=== PATIENT | female | born 1985 | race Caucasian/White ===

== ENCOUNTER → 2017-04-17 | Outpatient (CLI) | payer BC ==
[2017-04-17 14:13] LABS: Influenza A Negative (NEGATIVE); Influenza B Negative (NEGATIVE)
== END | disposition home or self-care (01) ==
LOC: LAB 13:34
PROVIDERS: Hospitalist
DX: R50.9 Fever, unspecified (principal); R05 Cough
CPT/HCPCS: 87804

== ENCOUNTER → 2018-05-09 | Outpatient (CLI) | payer BC ==
[2018-05-09 14:46] LABS: BASOPHILS ABSOLUTE AUTO 0.06 K/mm3 (0.00-0.23); BASOPHILS PERCENT AUTO 1 % (0-2); EOSINOPHILS ABSOLUTE AUTO 0.12 K/mm3 (0.00-0.68); EOSINOPHILS PERCENT AUTO 2 % (0-6); Hematocrit 42.8 % (33.0-51.0); Hemoglobin 13.9 g/dL (11.5-16.0); IMMATURE GRAN ABSOLUTE AUTO 0.02 K/mm3 (0.00-0.10); IMMATURE GRAN PERCENT AUTO 0 % (0-1); LYMPHOCYTES ABSOLUTE AUTO 1.79 K/mm3 (0.84-5.20); LYMPHOCYTES PERCENT AUTO 31 % (21-46); MONOCYTES ABSOLUTE AUTO 0.47 K/mm3 (0.16-1.47); MONOCYTES PERCENT AUTO 8 % (4-13); Mean Corpuscular HGB 31.5 pg (26.0-34.0); Mean Corpuscular HGB Conc 32.5 g/dL (31.5-36.5); Mean Corpuscular Volume 97 fL (80-100); Mean Platelet Volume 10.8 fL (9.1-12.4); NEUTROPHILS ABSOLUTE AUTO 3.31 K/mm3 (1.96-9.15); NEUTROPHILS PERCENT AUTO 58 % (41-73); Platelet Count 227 K/mm3 (150-400); RDW Coefficient Variation 11.7 % (11.7-14.2); Red Blood Cell Count 4.41 M/mm3 (3.80-5.20); White Blood Cell Count 5.77 K/mm3 (4.00-11.30)
[2018-05-09 14:49] LABS: Percent Saturation 14.9 % (15.0-50.0)
== END | disposition home or self-care (01) ==
LOC: LAB 14:16 → LAB SHORT 14:16
PROVIDERS: Hospitalist
DX: R53.83 Other fatigue (principal)
CPT/HCPCS: 83540; 83550; 85025

== ENCOUNTER 2019-08-31 09:34 | Day surgery (SDC) | payer BC ==
[~2019-08-31] VITALS: Ht 167.6 cm; Wt 72.7 kg
[~2019-08-31 09:34] MED LIST: FERROUS SULFAT325 M3 PO; METF500 PO; VITAMIN C PO; [UNRECOGNIZED DRUG - OTHER] PO
== END 2019-08-31 11:25 | disposition home or self-care (01) ==
LOC: ORSCSDS 09:34
PROVIDERS: Internal Medicine Gastroenterology
PROC: 0DBP8ZX Excision of Rectum, Via Natural or Artificial Opening Endoscopic, Diagnostic (ICD-10-PCS; principal; 2019-08-31 11:00)
DX: D50.9 Iron deficiency anemia, unspecified (principal); K62.1 Rectal polyp; K64.8 Other hemorrhoids; Z87.891 Personal history of nicotine dependence; Z79.899 Other long term (current) drug therapy
CPT/HCPCS: J2704; J7120

== ENCOUNTER 2020-01-28 09:27 | Day surgery (SDC) | payer OTHER, BC ==
[2020-01-27 09:47] LABS: BASOPHILS ABSOLUTE AUTO 0.05 K/mm3 (0.00-0.23); BASOPHILS PERCENT AUTO 1 % (0-2); EOSINOPHILS ABSOLUTE AUTO 0.09 K/mm3 (0.00-0.68); EOSINOPHILS PERCENT AUTO 2 % (0-6); Hemoglobin 12.4 g/dL (11.5-16.0); IMMATURE GRAN ABSOLUTE AUTO 0.01 K/mm3 (0.00-0.10); IMMATURE GRAN PERCENT AUTO 0 % (0-1); LYMPHOCYTES ABSOLUTE AUTO 1.43 K/mm3 (0.84-5.20); LYMPHOCYTES PERCENT AUTO 25 % (21-46); MONOCYTES ABSOLUTE AUTO 0.37 K/mm3 (0.16-1.47); MONOCYTES PERCENT AUTO 7 % (4-13); Mean Corpuscular HGB 30.8 pg (26.0-34.0); Mean Corpuscular HGB Conc 31.8 g/dL (31.5-36.5); Mean Corpuscular Volume 97 fL (80-100); Mean Platelet Volume 9.9 fL (9.1-12.4); NEUTROPHILS ABSOLUTE AUTO 3.78 K/mm3 (1.96-9.15); NEUTROPHILS PERCENT AUTO 66 % (41-73); Platelet Count 293 K/mm3 (150-400); RDW Coefficient Variation 12.8 % (11.7-14.2); RDW Standard Deviation 45.7 fL (35.1-46.3); Red Blood Cell Count 4.03 M/mm3 (3.80-5.20); White Blood Cell Count 5.73 K/mm3 (4.00-11.30)
[~2020-01-28] VITALS: Ht 167.6 cm; Wt 65.8 kg
--- NOTE | 2020-01-28 10:33 | NUR ---
Ambulatory in Day Surgery History, Chart, Medications and Allergies reviewed before start of procedure. Lungs clear T/O to Auscultation. Pre-Op teaching done. Pt verbalizes understanding.
--- NOTE | 2020-01-28 17:19 | NUR ---
PATIENT ARRIVED POD 0 FROM PACU ON 01/28/2020. PT HAD A TOTAL ROBOTIC HYSTERECTOMY. SHE CAME BACK ALERT AND ORIENTED X4. VS WERE WNL AND ON RA. PATIENT REPORTED NO PAIN AT THE TIME SHE CAME BACK. FLUIDS ARE RUNNING. CALL LIGHT WITHIN REACH. PT IS EL PO INTAKE. JARVIS IS DRAINING WITH YELLOW URINE AND NO KINKS IN THE TUBING. PT CALLS APPROPRIATELY AND IS VERY NICE TO WORK WITH.
--- NOTE | 2020-01-28 17:22 | NUR ---
SHIFT SUMMARY: POD 0 TOTAL ROBOTIC HYSTERECTOMY PATIENT HAS HAD NO SIGNIFICANT CHANGES SINCE COMING BACK FROM PACU. I HAVE GIVEN HER PAIN MEDICATIONS IV AND PO WHEN PAINFUL. SHE IS TOLERATING PO INTAKE. JARVIS IS STILL DRAINING YELLOW URINE WITH NO KINKS IN TUBING. SHE CALLS APPROPRIATELY. SHE HAS BEEN SLEEPING ON AND OFF DURING SHIFT BUT IS EASILY AROUSABLE. VITALS ARE WNL AND SHE IS STILL ON RA. CALL LIGHT WITHIN REACH. THE PLAN IS FOR PAIN TO CONTINUED TO BE MANAGED.
[2020-01-29 04:32] LABS: BASOPHILS ABSOLUTE AUTO 0.03 K/mm3 (0.00-0.23); BASOPHILS PERCENT AUTO 0 % (0-2); EOSINOPHILS ABSOLUTE AUTO 0.07 K/mm3 (0.00-0.68); EOSINOPHILS PERCENT AUTO 1 % (0-6); Hematocrit 35.2 % (33.0-51.0); Hemoglobin 11.2 g/dL (11.5-16.0); IMMATURE GRAN ABSOLUTE AUTO 0.04 K/mm3 (0.00-0.10); IMMATURE GRAN PERCENT AUTO 1 % (0-1); LYMPHOCYTES ABSOLUTE AUTO 2.09 K/mm3 (0.84-5.20); LYMPHOCYTES PERCENT AUTO 25 % (21-46); MONOCYTES ABSOLUTE AUTO 0.66 K/mm3 (0.16-1.47); MONOCYTES PERCENT AUTO 8 % (4-13); Mean Corpuscular HGB Conc 31.8 g/dL (31.5-36.5); Mean Corpuscular Volume 98 fL (80-100); Mean Platelet Volume 10.2 fL (9.1-12.4); NEUTROPHILS ABSOLUTE AUTO 5.45 K/mm3 (1.96-9.15); NEUTROPHILS PERCENT AUTO 65 % (41-73); Platelet Count 239 K/mm3 (150-400); RDW Coefficient Variation 12.7 % (11.7-14.2); RDW Standard Deviation 45.7 fL (35.1-46.3); Red Blood Cell Count 3.61 M/mm3 (3.80-5.20); White Blood Cell Count 8.34 K/mm3 (4.00-11.30)
--- NOTE | 2020-01-29 07:57 | NUR ---
SUMMARY PT VERB PAIN ADEQUATELY CONTROLLED. USING KPAD THIS AM OVER GOWN. ON ASSESSMENT, NOTEWD TO HAVE K PAD UNDER GOWN AND ABD SHOWING MILD REDNESS ALTHOUGH PT DENIED DISCOMFORT.I REMOVED HER KPAD AND DISCUSSED RISKS WITH HER. ADVISED WE NEED TO HAVE KPAD AT LOWER HEAT AND COULD ONLY RESUME AFTER REDNESS RESOLVED. REDNESS RESOLVED AND PT RESUMED USING AT LOWER HEAT AND OVER GOWN INSTEAD OF UNDER.NO FURTHER REDNESS. PT UP TO RECLINING CHAIR THIS AM.REPORTED DID NOT TOLERATE OOB YESTERDAY.WAITED TO D/C [facility] THIS AM TO CONFIRM TOLERANCE TO AMBULATION.PT WITH LIGHT VAG FLOW AND PASSING FLATUS.
[2020-01-29] MEDS ORDERED: DOCU100 PO (13:43)
[2020-01-29] MEDS ORDERED: DULCOLAX400 MG/5 M PO (13:44)
[2020-01-29] MEDS ORDERED: PROM25 PO (13:45)
[2020-01-29] MEDS ORDERED: SENN187 PO (13:46)
[2020-01-29] MEDS ORDERED: Norco 5-325 Ta1 EACH PO (13:46)
[2020-01-29] MEDS ORDERED: SIME80CH PO (13:46)
[2020-01-29] MEDS ORDERED: IBUP800 PO (13:47)
== END 2020-01-29 14:10 | disposition home or self-care (01) ==
LOC: ORSCMMR 09:27 → ORD 11:00 → ORSCMMR 11:00 → ORD 13:00 → SURS 16:14 → ORSCMMR 01-29 14:10
PROVIDERS: Obstetrics & Gynecology
PROC: 0UT74ZZ Resection of Bilateral Fallopian Tubes, Percutaneous Endoscopic Approach (ICD-10-PCS; principal; 2020-01-28 11:00)
PROC: 0UT94ZZ Resection of Uterus, Percutaneous Endoscopic Approach (ICD-10-PCS; principal; 2020-01-28 11:00)
PROC: 8E0W4CZ Robotic Assisted Procedure of Trunk Region, Percutaneous Endoscopic Approach (ICD-10-PCS; principal; 2020-01-28 11:00)
DX: N92.0 Excessive and frequent menstruation with regular cycle (principal); D25.0 Submucous leiomyoma of uterus; N94.10 Unspecified dyspareunia; N80.0 Endometriosis of uterus; N72 Inflammatory disease of cervix uteri; N80.3 Endometriosis of pelvic peritoneum; Z87.891 Personal history of nicotine dependence
CPT/HCPCS: 58571; S2900; 36415; 84702; 85025; 86850; 86900; 86901; 88307; A9270; A9270-GY; J0461; J0690; J1885; J2250; J2370; J2405; J2704; J3010; J7120

== ENCOUNTER 2021-10-23 07:10 | Day surgery (SDC) | payer OTHER, BC ==
[~2021-10-23] VITALS: Ht 167.6 cm; Wt 64.2 kg
[~2021-10-23 07:10] MED LIST changes: +DOCU100 PO; +DULCOLAX400 MG/5 M PO; +IBUP800 PO; +Norco 5-325 Ta1 EACH PO; +PROM25 PO; +SENN187 PO; +SIME80CH PO
[2021-10-23] MEDS ORDERED: Ventolin/Prove6.7 GM INH (08:09)
[2021-10-23] MEDS ORDERED: MONT10T PO (08:10)
[2021-10-23] MEDS ORDERED: [UNRECOGNIZED DRUG - CODE] PO (08:13)
[2021-10-23] MEDS ORDERED: Iron Chews15 MG PO (08:14)
--- NOTE | 2021-10-23 08:29 | NUR ---
Ambulatory in Day Surgery. Patient confirms NPO status and agrees with scheduled surgery. Patient States Post-Procedure ride home has been arranged. Lungs clear T/O to Auscultation. Pre-Op teaching done. Pt verbalizes understanding.
--- NOTE | 2021-10-23 09:22 | NUR ---
10/23/21 0922 Eliecer Boudreaux NO ABX PER
--- NOTE | 2021-10-23 11:03 | NUR ---
Discharge instructions reviewed with patient. Patient verbalizes understanding. Copy given to patient to take home. INCISION C/D/I WITH SURGICAL GLUE IN PLACE. ICE PACK TO SITE. PT TOLERATED CRACKERS, COFFEE AND WATER. TOOK TRAMADOL PER ORDER. VSS. Discharged via wheelchair to private car for ride home.
== END 2021-10-23 10:55 | disposition home or self-care (01) ==
LOC: ORSCMMR 07:10 → ORD 08:15 → ORSCMMR 10:55
PROVIDERS: Surgery
PROC: 0JBD0ZX Excision of Right Upper Arm Subcutaneous Tissue and Fascia, Open Approach, Diagnostic (ICD-10-PCS; principal; 2021-10-23 08:15)
DX: D21.3 Benign neoplasm of connective and other soft tissue of thorax (principal); Z87.891 Personal history of nicotine dependence; E28.2 Polycystic ovarian syndrome; Z79.84 Long term (current) use of oral hypoglycemic drugs; Z79.899 Other long term (current) drug therapy; J45.909 Unspecified asthma, uncomplicated
CPT/HCPCS: 88305; A9270; J1100; J1885; J2405; J2704; J2795; J3010; J7120

== ENCOUNTER → 2024-05-08 | Outpatient (CLI) | payer BC ==
[~2024-05-08] MED LIST changes: +Iron Chews15 MG PO; +MONT10T PO; +Ventolin/Prove6.7 GM INH; +[UNRECOGNIZED DRUG - CODE] PO
[2024-05-11 07:22] LABS: CALPROTECTIN,FECAL 6 ug/g (<=49)
== END ==
LOC: LAB 08:19 → LAB SHORT 08:19
PROVIDERS: Nurse Practitioner Family
DX: M25.50 Pain in unspecified joint (principal)
CPT/HCPCS: 83993

== ENCOUNTER 2024-11-24 10:24 | Day surgery (SDC) | payer BC ==
[2024-11-24] VITALS (14 sets, daily range): BP systolic 91–115; BP diastolic 50–84
[~2024-11-24 10:24] MED LIST changes: +Benzocaine Oral Spray 0.5ML UD ONE
[2024-11-24] MEDS ORDERED: ZYRTEC10 M2 PO (10:45)
[2024-11-24] MEDS ORDERED: VITAMIN D350 MC3 PO (10:46)
[2024-11-24] MEDS ORDERED: GLUCHON PO (10:48)
[2024-11-24] MEDS ORDERED: [UNRECOGNIZED DRUG - OTHER] PO (10:49)
[2024-11-24] MEDS ORDERED: VITAMIN B350 MG (10:50)
[2024-11-24] MEDS ORDERED: MAGNESIUM250 M1 PO (10:50)
[2024-11-24] MEDS ORDERED: POTASSIUM GLUCO90 M1 PO (10:51)
[2024-11-24] MEDS ORDERED: PROP60 PO (10:52)
[2024-11-24] MEDS ORDERED: [UNRECOGNIZED DRUG - OTHER] PO (10:52)
--- NOTE | 2024-11-24 11:29 | NUR ---
Pre-Op teaching done. Pt verbalizes understanding. Ambulatory in Day Surgery. History, Chart, Medications and Allergies reviewed before start of procedure. Patient confirms NPO status and agrees with scheduled surgery. Patient States Post-Procedure ride home has been arranged.
[2024-11-24] MEDS ORDERED: Benzocaine Oral Spray 0.5ML UD ONE (11:42)
[2024-11-24] MEDS ORDERED: Midazolam HCl 1MG / ML 2ML Vial ONE ×2 (11:43→11:46)
[2024-11-24] MEDS ORDERED: Glycopyrrolate 0.2 MG/ML 1MLVIAL ONE (11:46)
--- NOTE | 2024-11-24 12:55 | NUR ---
Discharge instructions reviewed with patient. Patient verbalizes understanding. Copy given to patient to take home. Patient States Post-Procedure ride home has been arranged. Discharged via wheelchair to private car for ride home.
--- NOTE | 2024-11-25 17:36 | NUR ---
11/25/24 4830 Kiersten Maradiaga CONFIRMED AND REVIEWED H&P, MEDCICATIONS, ALLERGIES, MEDICAL HISTORY, RESPIRATORY HISTORY, VITAL SIGNS, 3-LEAD EKG, CONSENTS, AND PHYSICIAN ORDERS. PATIENT CONFIRMS NPO STATUS AND AGREES WITH SCHEDULED PROCEDURE. MONITOR INTACT WITH CONTINUOUS PULSE OXIMETRY, CAPNOGRAPHY, 3-LEAD EKG, INTERMITTENT BP. SUPPLEMENTAL O2 TO BE TITRATED THROUGHOUT PROCEDURE TO MAINTAIN O2 SATURATION ABOVE 90%. PATIENT DETERMINED TO BE ASA APPROPRIATE FOR PROPOFOL SEDATION PRIOR TO START OF PROCEDURE BY DR. FOFANA.
== END 2024-11-24 23:00 | disposition home or self-care (01) ==
LOC: ORSCMMR 10:24
PROVIDERS: Surgery
PROC: 0DB78ZX Excision of Stomach, Pylorus, Via Natural or Artificial Opening Endoscopic, Diagnostic (ICD-10-PCS; principal; 2024-11-24 11:45)
PROC: 0DBE8ZX Excision of Large Intestine, Via Natural or Artificial Opening Endoscopic, Diagnostic (ICD-10-PCS; principal; 2024-11-24 11:45)
PROC: 0DB98ZX Excision of Duodenum, Via Natural or Artificial Opening Endoscopic, Diagnostic (ICD-10-PCS; principal; 2024-11-24 11:45)
DX: R19.4 Change in bowel habit (principal); Z87.19 Personal history of other diseases of the digestive system; R14.0 Abdominal distension (gaseous); Z86.0100 Personal history of colon polyps, unspecified; K29.70 Gastritis, unspecified, without bleeding; K21.9 Gastro-esophageal reflux disease without esophagitis; Z87.891 Personal history of nicotine dependence; E28.2 Polycystic ovarian syndrome; J45.909 Unspecified asthma, uncomplicated; Z79.899 Other long term (current) drug therapy; Z85.41 Personal history of malignant neoplasm of cervix uteri; Z79.84 Long term (current) use of oral hypoglycemic drugs
CPT/HCPCS: 88305; 88342; A9270; J2250; J2704; J7120